=== PATIENT | female | born 1980 | race Caucasian/White ===

== ENCOUNTER → 2020-08-04 13:22 | Outpatient (BNVA) | payer OTHER, SELFPAY | PROVIDERS: Visit Provider Internal Medicine | DX: S69.92XA Unspecified injury of left wrist, hand and finger(s), initial encounter (principal); X50.9XXA Other and unspecified overexertion or strenuous movements or postures, initial encounter | CPT/HCPCS: 73130; 99202 ==

== ENCOUNTER → 2020-08-09 09:21 | Outpatient (BNVA) | payer OTHER, SELFPAY | PROVIDERS: Visit Provider Physician Assistant | DX: S69.92XA Unspecified injury of left wrist, hand and finger(s), initial encounter (principal); X58.XXXA Exposure to other specified factors, initial encounter | CPT/HCPCS: 29130; 99214 ==

== ENCOUNTER → 2020-08-16 10:27 | Outpatient (BNVA) | payer OTHER, SELFPAY | PROVIDERS: Visit Provider Physician Assistant | DX: S69.92XA Unspecified injury of left wrist, hand and finger(s), initial encounter (principal); X58.XXXA Exposure to other specified factors, initial encounter | CPT/HCPCS: 99213 ==

== ENCOUNTER → 2020-08-23 10:46 | Outpatient (BNVA) | payer OTHER, SELFPAY | PROVIDERS: Visit Provider Physician Assistant | DX: S69.92XD Unspecified injury of left wrist, hand and finger(s), subsequent encounter (principal); X58.XXXD Exposure to other specified factors, subsequent encounter | CPT/HCPCS: 99213 ==

== ENCOUNTER → 2020-08-31 10:55 | Outpatient (BNVA) | payer OTHER, SELFPAY | PROVIDERS: Visit Provider Physician Assistant | DX: S69.92XD Unspecified injury of left wrist, hand and finger(s), subsequent encounter (principal); X58.XXXD Exposure to other specified factors, subsequent encounter | CPT/HCPCS: 99213 ==

== ENCOUNTER → 2020-09-14 13:06 | Outpatient (BNVA) | payer OTHER, SELFPAY | PROVIDERS: Visit Provider Physician Assistant | DX: S69.92XD Unspecified injury of left wrist, hand and finger(s), subsequent encounter (principal); X58.XXXD Exposure to other specified factors, subsequent encounter | CPT/HCPCS: 99213 ==

== ENCOUNTER → 2020-10-06 10:45 | Outpatient (BNVA) | payer OTHER, SELFPAY | PROVIDERS: Visit Provider Physician Assistant Medical | DX: S69.92XD Unspecified injury of left wrist, hand and finger(s), subsequent encounter (principal); X58.XXXD Exposure to other specified factors, subsequent encounter | CPT/HCPCS: 99213 ==

== ENCOUNTER → 2021-01-10 08:16 | Outpatient (BNVA) | payer OTHER, SELFPAY | PROVIDERS: Visit Provider Internal Medicine | DX: S46.819A Strain of other muscles, fascia and tendons at shoulder and upper arm level, unspecified arm, initial encounter (principal); S33.9XXA Sprain of unspecified parts of lumbar spine and pelvis, initial encounter; X50.0XXA Overexertion from strenuous movement or load, initial encounter; M54.10 Radiculopathy, site unspecified | CPT/HCPCS: 99203 ==

== ENCOUNTER → 2021-01-13 09:25 | Outpatient (BNVA) | payer OTHER, SELFPAY | PROVIDERS: Visit Provider Physician Assistant Medical | DX: S46.819A Strain of other muscles, fascia and tendons at shoulder and upper arm level, unspecified arm, initial encounter (principal); S33.9XXA Sprain of unspecified parts of lumbar spine and pelvis, initial encounter; X58.XXXA Exposure to other specified factors, initial encounter; M54.17 Radiculopathy, lumbosacral region | CPT/HCPCS: 99213 ==

== ENCOUNTER → 2021-01-17 09:24 | Outpatient (BNVA) | payer OTHER, SELFPAY | PROVIDERS: Visit Provider Physician Assistant Medical | DX: S46.819A Strain of other muscles, fascia and tendons at shoulder and upper arm level, unspecified arm, initial encounter (principal); S33.9XXA Sprain of unspecified parts of lumbar spine and pelvis, initial encounter; X58.XXXA Exposure to other specified factors, initial encounter; M54.17 Radiculopathy, lumbosacral region | CPT/HCPCS: 99213 ==

== ENCOUNTER → 2021-01-24 09:04 | Outpatient (BNVA) | payer OTHER, SELFPAY | PROVIDERS: PCP Internal Medicine; Visit Provider Physician Assistant Medical | DX: S46.811D Strain of other muscles, fascia and tendons at shoulder and upper arm level, right arm, subsequent encounter (principal); S33.9XXD Sprain of unspecified parts of lumbar spine and pelvis, subsequent encounter; X58.XXXD Exposure to other specified factors, subsequent encounter | CPT/HCPCS: 99213 ==

== ENCOUNTER → 2021-01-30 09:51 | Outpatient (BNVA) | payer OTHER, SELFPAY | PROVIDERS: PCP Internal Medicine; Visit Provider Physician Assistant Medical | DX: S46.819D Strain of other muscles, fascia and tendons at shoulder and upper arm level, unspecified arm, subsequent encounter (principal); S33.9XXD Sprain of unspecified parts of lumbar spine and pelvis, subsequent encounter; X58.XXXD Exposure to other specified factors, subsequent encounter | CPT/HCPCS: 99213 ==

== ENCOUNTER → 2021-02-09 10:36 | Outpatient (BNVA) | payer OTHER, SELFPAY | PROVIDERS: PCP Internal Medicine; Visit Provider Physician Assistant Medical | DX: S33.9XXD Sprain of unspecified parts of lumbar spine and pelvis, subsequent encounter (principal); M54.17 Radiculopathy, lumbosacral region; X58.XXXD Exposure to other specified factors, subsequent encounter | CPT/HCPCS: 99213 ==

== ENCOUNTER 2021-02-16 10:00 | Outpatient (RCR) | payer OTHER, MEDICAID, SELFPAY ==
--- NOTE | 2021-01-24 08:59 | MHC.PT.EP ---
[facility] [place] Office [place] [facility] [place] [facility] [address] Kimberly lBue [address] [phone] F: [phone] F: [phone] F: [phone] F: [phone] Physical Therapy Plan of Care Date of Evaluation: Date of Surgery: NA Diagnosis: LBP, trapezius strain Assessment: The patient has generally decreased lumbar, thoracic, LE ROM. It appears to be painful and guarded movement. She has decreased LE strength as well that appears guarded due to improvement in motion with cues for maximal effort. The patient has poor posture awareness, and poor neutral spine awareness. Her has poor bed mobility technique that adds strain to her back. The patient will benefit from skilled Physical Therapy services to improve sitting posture, body mechanics, neutral spine mechanics, and gentle exercises that will facilitate and promote trunk motion. Frequency and Duration: The patient will be seen 2x/week x 4 weeks. Short Term Goals: 1. Pt to be able to return to normal PLOF without limiting pain. 2. Pt to be able to return to overhead reaching without pain or limitation. 3. Pt to be able to manage her pain with selected exercise and stretching regime. Hand Polisher Goals: 1.The patient to demonstrate proper lifting mechanics for household chore activities to show improved functional mobility. 2.The patient to report no leg or hip pain in order to show centralization of pain and reduction of lumbar derangement 3. Pt to be able to demonstrate self management of lumbar pain by demonstration of HEP. Treatment Plan: Modalities to reduce pain, spasms and effusion. Manual therapy to restore motion and function. Therapeutic exercise to improve strength and flexibility. Neuromuscular re-education for posture and balance. Therapeutic activities to return to functional activities of daily living. Electronically signed by: Eileen Palacio PT DPT Please sign and return to therapist. Thank you for your referral.
== END 2021-03-08 08:00 | disposition home or self-care (01) ==
LOC: HO.PT 10:00
PROVIDERS: PCP Internal Medicine; Visit Provider Physician Assistant Medical
DX: S39.012D Strain of muscle, fascia and tendon of lower back, subsequent encounter (principal); S29.012D Strain of muscle and tendon of back wall of thorax, subsequent encounter
CPT/HCPCS: 97110; 97112; 97162; 97530

== ENCOUNTER 2021-02-16 15:32 | Outpatient (REF) | payer OTHER, SELFPAY ==
--- NOTE | ~2021-02-16 | MR_ITS ---
EXAMINATION: MR LUMBAR SPINE WITHOUT CONTRAST CLINICAL INFORMATION: Lifting injury. Pain radiates to left leg. Persistent pain. COMPARISON: None TECHNIQUE: MRI of the lumbar spine was obtained using routine sequences without contrast. FINDINGS: VERTEBRAL BODIES AND PARASPINAL STRUCTURES: 5 lumbar-type vertebral bodies are identified. Vertebral body height and alignment are within normal limits. No L5 pars interarticularis defects are visualized. Moderate endplate discogenic marrow signal changes are noted adjacent to the L2-L3 intervertebral disc and a minimal Schmorl's node deformity of the superior endplate of L3 is visualized. CONUS MEDULLARIS AND CAUDA EQUINA: Normal, terminating at the level of L1. SPINAL LEVELS: T12-L1: No central foraminal stenoses. Normal intervertebral discs. L1-L2: No central foraminal stenoses. Normal intervertebral discs. L2-L3: Moderate bilateral parasagittal and intraforaminal disc protrusions. The extraforaminal component of the protrusions results in moderate left and mild right extraforaminal L2 nerve root impingement. The protrusions mildly efface the left and right subarticular recesses without L3 nerve root impingement. Intervertebral disc exhibits 25% loss of expected craniocaudal height. L3-L4: No central or foraminal stenoses. Normal intervertebral discs. Mild bilateral ligamentum flavum hypertrophy. L4-L5: No central foraminal stenoses. Mild bilateral ligamentum flavum hypertrophy. Minimal left facet hypertrophic changes. Minimal anterior endplate osteophytosis. L5-S1: No central or foraminal stenoses. Normal intervertebral discs. Minimal right facet hypertrophic degenerative changes. MR/MR lumbar spine wo con IMPRESSION: L2-L3 moderate bilateral parasagittal, intraforaminal and extraforaminal disc protrusions resulting in moderate left and mild right extraforaminal L2 nerve root impingement. Elsewhere in the lumbar spine, mild multilevel chronic spondylosis is present without associated nerve root impingement or significant central or foraminal stenoses.
== END 2021-02-16 15:33 | disposition home or self-care (01) ==
LOC: HO.MRI 15:32
PROVIDERS: Visit Provider Internal Medicine
DX: M54.5 Low back pain (principal); M53.3 Sacrococcygeal disorders, not elsewhere classified; M79.605 Pain in left leg
CPT/HCPCS: 72148